=== PATIENT | female | born 1955 | race Caucasian/White ===

== ENCOUNTER → 2016-08-21 | Outpatient (CLI) | payer BC ==
[~2016-08-21] MED LIST: ASPI81TA28 PO; BIOT5TAB PO; CHOL20009 PO; FOLI1TAB7 PO; MULTTAB PO; WARF5TAB90 PO
[2016-08-21 11:20] LABS: BASO % 0.7 %; BASO ABS # 0.02 K/uL (0-0.2); COMPLETE YES; EOS % 2.3 %; HEMATOCRIT 43.5 % (37-47); LYMPH % 39.3 %; LYMPH ABS # 1.17 K/uL (1.2-3.4); MEAN CELL VOLUME 95.6 fL (80-100); MEAN CORPUSCULAR HEMOGLOBIN 32.5 pg (25-34); MEAN PLATELET VOLUME 11.3 fL (7.4-10.4); MONO % 7.7 %; PLATELET COUNT 214 K/uL (130-400); RED BLOOD COUNT 4.55 M/uL (4.2-5.4); WHITE BLOOD COUNT 2.98 K/uL (4.8-10.8)
[2016-08-21 11:42] LABS: ALT/SGPT 25 U/L (12-78); BLOOD UREA NITROGEN 17 mg/dl (7-18); BUN/CREATININE RATIO 18.4 (10-20); CALCIUM 9.1 mg/dl (8.5-10.1); CARBON DIOXIDE 26 mmol/L (21-32); CHLORIDE 105 mmol/L (98-107); CHOLESTEROL 163 mg/dl (0-200); CREATININE 0.93 mg/dl (0.60-1.20); GLUCOSE 92 mg/dl (70-99); POTASSIUM 4.6 mmol/L (3.5-5.1); SODIUM 140 mmol/L (136-145); TRIGLYCERIDES 58 mg/dl (0-150); VERY LOW DENSITY LIPOPROT CALC 12 mg/dl
[2016-08-21 11:53] LABS: ALB/GLOB RATIO 1.1 (0.9-2); ALKALINE PHOSPHATASE 61 U/L (45-117); AST/SGOT 19 U/L (15-37); CHOLESTEROL/HDL RATIO 2.6; HDL CHOLESTEROL 62 mg/dl; LDL CHOLESTEROL CALCULATED 89 mg/dl
== END | disposition home or self-care (01) ==
LOC: C.LAB1850 09:18
PROVIDERS: ATTEND Internal Medicine
DX: Z51.81 Encounter for therapeutic drug level monitoring (principal); Z79.899 Other long term (current) drug therapy; I10 Essential (primary) hypertension; R68.89 Other general symptoms and signs; E72.11 Homocystinuria; Z13.220 Encounter for screening for lipoid disorders

== ENCOUNTER → 2016-09-04 | Outpatient (CLI) | payer BC | END | disposition home or self-care (01) | LOC: C.PAPS 13:51 | PROVIDERS: ATTEND Obstetrics & Gynecology | DX: Z01.419 Encounter for gynecological examination (general) (routine) without abnormal findings (principal) ==

== ENCOUNTER → 2017-01-02 | Outpatient (CLI) | payer BC ==
[2017-01-02 12:33] LABS: BASO ABS # 0.04 K/uL (0-0.2); COMPLETE YES; HEMATOCRIT 43.1 % (37-47); LYMPH % 33.3 %; LYMPH ABS # 1.35 K/uL (1.2-3.4); MEAN CELL VOLUME 98.6 fL (80-100); MEAN CORPUSCULAR HEMOGLOBIN 31.6 pg (25-34); MEAN PLATELET VOLUME 10.6 fL (7.4-10.4); MONO % 7.7 %; PLATELET COUNT 274 K/uL (130-400); RED BLOOD COUNT 4.37 M/uL (4.2-5.4); WHITE BLOOD COUNT 4.05 K/uL (4.8-10.8)
== END | disposition home or self-care (01) ==
LOC: C.LAB1850 10:40
PROVIDERS: ATTEND Internal Medicine
DX: D72.819 Decreased white blood cell count, unspecified (principal)

== ENCOUNTER → 2017-04-18 | Outpatient (CLI) | payer BC ==
--- NOTE | 2017-04-18 13:16 | MAMMOGRAPHY REPORT ---
BILATERAL DIGITAL SCREENING MAMMOGRAM TOMOSYNTHESIS WITH CAD: 04/18/2017 CLINICAL HISTORY: Routine screening. Patient has no complaints. TECHNIQUE: Breast tomosynthesis in addition to standard 2D mammography was performed. Current study was also evaluated with a Computer Aided Detection (CAD) system. COMPARISON: Comparison is made to exams dated: 04/17/2016 mammogram, 04/14/2015 mammogram, 04/13/2014 m ammogram, 04/11/2013 mammogram, 01/29/2012 mammogram, and 01/16/2012 mammogram - [facility] nter. BREAST COMPOSITION: There are scattered areas of fibroglandular density in both breasts. FINDINGS: The parenchymal pattern is unchanged. No developing mass, architectural distortion or clus ter of suspicious microcalcifications is seen in either breast. IMPRESSION: ACR BI-RADS CATEGORY 2: BENIGN There is no mammographic evidence of malignancy. A 1 year screening mammogram is recommended. The pa tient will receive written notification of the results. Approximately 10% of breast cancers are not detected with mammography. A negative mammographic report should not delay biopsy if a clinically suggestive mass is present. Rolanda Brennan M.D. ay/:04/18/2017 12:58:58 [employer]: Lima ROWE(Joceline)(Kyle)(BD), [facility] letter sent: Normal 1/2 BI-RADS Code: ACR BI-RADS Category 2: Benign
== END | disposition home or self-care (01) ==
LOC: C.MAMM 09:20
PROVIDERS: ATTEND Obstetrics & Gynecology
DX: Z12.31 Encounter for screening mammogram for malignant neoplasm of breast (principal)

== ENCOUNTER → 2017-09-12 | Outpatient (CLI) | payer BC ==
[~2017-09-12] MED LIST changes: -FOLI1TAB7 PO; +FOLI1TAB8 PO
[2017-09-12 13:08] LABS: BASO % 0.5 %; BASO ABS # 0.02 K/uL (0-0.2); EOS % 3.3 %; EOS ABS # 0.13 K/uL (0-0.5); HEMATOCRIT 43.8 % (37-47); HEMOGLOBIN 15.1 g/dL (12.0-16.0); IG# 0.01 K/uL (0.00-0.02); LYMPH % 34.4 %; LYMPH ABS # 1.37 K/uL (1.2-3.4); MEAN CELL VOLUME 96.3 fL (80-100); MEAN CORPUSCULAR HEMOGLOBIN 33.2 pg (25-34); MEAN CORPUSCULAR HGB CONC 34.5 g/dl (32-36); MEAN PLATELET VOLUME 10.8 fL (7.4-10.4); MONO ABS # 0.32 K/uL (0.11-0.59); NEUT % 53.5 %; NEUT ABS # 2.13 K/uL (1.4-6.5); PLATELET COUNT 246 K/uL (130-400); RED CELL DISTRIBUTION WIDTH CV 12.9 % (11.5-14.5); RED CELL DISTRIBUTION WIDTH SD 44.8 fL (36.4-46.3); WHITE BLOOD COUNT 3.98 K/uL (4.8-10.8)
[2017-09-12 14:15] LABS: ALBUMIN 3.8 gm/dl (3.4-5.0); ALT/SGPT 39 U/L (12-78); BLOOD UREA NITROGEN 16 mg/dl (7-18); CALCIUM 9.1 mg/dl (8.5-10.1); CARBON DIOXIDE 30 mmol/L (21-32); CREATININE 0.94 mg/dl (0.60-1.20); GLUCOSE 94 mg/dl (70-99); POTASSIUM 4.3 mmol/L (3.5-5.1); SODIUM 139 mmol/L (136-145)
[2017-09-12 14:17] LABS: ALKALINE PHOSPHATASE 64 U/L (45-117); AST/SGOT 29 U/L (15-37); TOTAL PROTEIN 7.5 gm/dl (6.4-8.2)
== END | disposition home or self-care (01) ==
LOC: C.LAB1850 12:09
PROVIDERS: ATTEND Internal Medicine
DX: Z86.2 Personal history of diseases of the blood and blood-forming organs and certain disorders involving the immune mechanism (principal); I10 Essential (primary) hypertension

== ENCOUNTER 2021-07-05 16:56 | Observation (INO) ==
--- NOTE | 2021-07-05 17:49 | XRay Report ---
XR chest 1V portable CLINICAL HISTORY: Dyspnea. COMPARISON STUDY: Chest radiograph May 14, 2017. FINDINGS: There are median sternotomy wires. Prosthetic cardiac valve is present. No pneumothorax or pleural effusion is noted. There is no evidence for pulmonary edema. Multiple bilateral airspace opac ities are present. IMPRESSION: Multifocal bilateral airspace opacities suggestive of an infectious process. Radiographi c follow-up to ensure resolution is recommended. ACT 112: Negative or not required by law. Electronically signed by: Mahad Ocampo M.D. 07/05/2021 5:48 PM
[2021-07-05 17:53] LABS: Basophils # (auto) 0.02 K/uL (0-0.2); Basophils % (auto) 0.4 %; Eosinophils % (auto) 4.4 %; Hematocrit (blood only) 39.7 % (37-47); Hemoglobin 13.6 g/dL (12.0-16.0); Immature Granulocytes # (auto) 0.02 K/uL (0.00-0.02); Immature Granulocytes % (auto) 0.4 %; Lymphocytes # (auto) 1.46 K/uL (1.2-3.4); Lymphocytes % (auto) 32.3 %; Mean Corpuscular Hemoglobin 33.1 pg (25-34); Mean Corpuscular Hgb Conc 34.3 g/dL (32-36); Mean Corpuscular Volume 96.6 fL (80-100); Mean Platelet Volume 9.2 fL (7.4-10.4); Monocytes # (auto) 0.39 K/uL (0.11-0.59); Monocytes % (auto) 8.6 %; Neutrophils # (auto) 2.43 K/uL (1.4-6.5); Neutrophils % (auto) 53.9 %; Platelet Count 367 K/uL (130-400); RDW Coefficient of Variation 12.7 % (11.5-14.5); RDW Standard Deviation 44.5 fL (36.4-46.3); Red Blood Count 4.11 M/uL (4.2-5.4); White Blood Count 4.52 K/uL (4.8-10.8)
[2021-07-05 18:11] LABS: Alanine Aminotransferase 31 (12-78); Albumin Level 3.1 gm/dl (3.4-5.0); Aspartate Aminotransferase 23 U/L (15-37); Blood Urea Nitrogen 10 mg/dl (7-18); Calcium 8.9 mg/dl (8.5-10.1); Carbon Dioxide 28 mmol/L (21-32); Chloride 103 mmol/L (98-107); Creatinine Clr Calc Pharmacy 64.2 ml/min; Est GFR (Non-African American) 72.5 ml/min; Glucose 115 mg/dl (70-99); Potassium 3.7 mmol/L (3.5-5.1); Sodium 135 mmol/L (136-145)
[2021-07-05 18:22] LABS: Albumin Globulin Ratio 0.7 (0.9-2); Alkaline Phosphatase 62 U/L (45-117); Bilirubin,Total 0.3 mg/dl (0.2-1); Globulin 4.6 gm/dl (2.5-4.0); Total Protein 7.7 gm/dl (6.4-8.2)
--- NOTE | 2021-07-05 20:27 | Emergency Department Note ---
History of Present Illness General Chief complaint: Shortness of Breath/Dyspnea Stated complaint: COVID+, PNEUMONIA, SOB, COUGH Time Seen by Provider: 07/05/21 20:10 Source: patient History of Present Illness Provider complaint: Chest pain Onset (ago): day(s) Location: chest Radiation: non-radiation Pain Consistency: + constant Quality: + other (Heaviness) Relieved By: + none Associated symptoms: + chest pain, + cough, + fever/chills, + headaches, + malaise and + shortness of breath; no nausea/vomiting This is a 66-year-old female who presents with chest heaviness starting last night and continuing into today. She states it is substernal without radiation. It is associated with some shortness of breath. She states that she started having Covid symptoms on the first of this month. She developed a headache and then the next day developed sore throat, myalgias and cough. At that time she had chest pain which she described as broken glass on her chest. That eventually went away and the heaviness started last night. She denies any leg swelling or pain. She is on Coumadin for an artificial heart valve. She stated her last level was about 3.5. She has had a fever up to 100.5. She has had no loss of taste or smell or diarrhea. She denies abdominal pain, urinary symptoms or vomiting. She does state that she has had both vaccinations for COVID-19 but was scheduled to have her booster after she developed symptoms. She went to her doctors and had a rapid Covid test which was positive on the fourth. She was seen recently by her doctor and had an x-ray which showed bilateral pneumonia. She was placed on Zithromax, vitamin C and zinc. She has had no improvement of her symptoms. Home Medications Medication Instructions Recorded Confirmed Type cholecalciferol (vitamin D3) 50 2,000 units PO DAILY tab 04/01/19 07/05/21 History mcg (2,000 unit) tablet cyanocobalamin (vitamin B-12) 1,000 mcg PO DAILY tab 04/01/19 07/05/21 History 1,000 mcg tablet,extended release latanoprost 0.005 % eye drops 1 drops OP DAILY ml 04/01/19 07/05/21 History folic acid 1 mg tablet 1 mg PO DAILY #90 tab 10/07/20 07/05/21 Rx warfarin 5 mg tablet 5 mg PO DAILY #90 tab 10/08/20 07/05/21 Rx alendronate 70 mg tablet 70 mg PO WK tab 03/22/21 07/05/21 History ascorbic acid (vitamin C) 500 mg 0 mg PO DAILY 07/05/21 07/05/21 History tablet (Vitamin C) aspirin 81 mg capsule 81 mg PO DAILY 07/05/21 07/05/21 History calcium carbonate 500 mg calcium 0 mg PO DAILY 07/05/21 07/05/21 History (1,250 mg) tablet (Calcium 500) zinc acetate 25 mg (zinc) capsule 0 mg PO DAILY 07/05/21 07/05/21 History Allergies Allergy/AdvReac Type Severity Reaction Status Date / Time No Known Allergies Allergy Unverified 06/22/21 08:32 Past Med/Surg History Medical History Acute DVT (deep venous thrombosis) Caregiver stress PMB (postmenopausal bleeding) Pulmonary embolism Rheumatic disease Rheumatic endocardium disease Surgical History H/O valvuloplasty S/P tonsillectomy and adenoidectomy Family History Mother Neoplasm of lymph node Father Pacemaker Denies family history of Ovarian cancer Prostate cancer Myocardial infarction Breast cancer Colorectal cancer Social History Smoking Status: Never smoker Second Hand Exposure: No; Hx Alcohol Use: No Hx Substance Use: No Preferred Language: Wolof Visual Impairment: No Limitations Hearing Ability: Normal Recovery Analyst Required: No marital status: Current Living Situation: Spouse current occupational status: retired Feels Safe at Home: Yes Childhood Exposure to Second-Hand Smoke: No caffeine: Yes Dental Care, Regularly: Yes Physical Activity Frequency: 3-4 Times per Week Seatbelt Use: always Sunscreen Use: Yes Review of Systems See HPI for pertinent positives & negatives. and A total of 10 systems reviewed and were otherwise negative Physical Exam Vital Signs Vital Signs - 24 hr 07/05/21 17:00 07/05/21 20:34 07/05/21 20:36 Temperature 36.8 C Temperature Source Skin Pulse Rate 100 H Pulse Rate [Bilateral Apical] 79 Respiratory Rate 18 20 Respiratory Effort / Characteristics Non-Labored Respiratory Depth Normal Blood Pressure 165/99 H Blood Pressure [Right Arm] 157/91 H Blood Pressure Mean 121 Blood Pressure Mean [Right Arm] 113 Pulse Oximetry 97 97 97 Oxygen Delivery Method Room Air Room Air Room Air Sepsis Recent Fever Within 48 Hours No Sepsis New/Unexplained Change in Mental Status No Sepsis Action Taken by Nursing No Action Required 07/05/21 21:15 07/05/21 22:06 Temperature Temperature Source Pulse Rate Pulse Rate [Bilateral Apical] 88 78 Respiratory Rate 20 20 Respiratory Effort / Characteristics Respiratory Depth Blood Pressure Blood Pressure [Right Arm] 169/113 H 148/82 H Blood Pressure Mean Blood Pressure Mean [Right Arm] 131 104 Pulse Oximetry 98 97 Oxygen Delivery Method Room Air Room Air Sepsis Recent Fever Within 48 Hours Sepsis New/Unexplained Change in Mental Status Sepsis Action Taken by Nursing Constitutional: Vital signs reviewed. Eyes: Pupils are equal round reactive to light. Conjunctiva are noninjected. ENT: Pharynx is clear without erythema or exudate. Mucous membranes are moist. Neck supple without meningeal signs. Respiratory: Clear to auscultation bilaterally. Breath sounds are equal bilaterally. Cardiovascular: Regular rate and rhythm. No rubs or gallops. GI: Soft, nondistended and nontender. Bowel sounds are present. Musculoskeletal: No peripheral edema. No lower extremity tenderness. Integumentary: No cyanosis. or jaundice. Neurological: The patient is awake and alert. No focal deficits. Psychiatric: Normal affect. Not anxious appearing. Course Administered Medications Discontinued Medications Aspirin (Aspirin 81 Mg Chew) 324 mg PO NOW STA Stop: 07/05/21 21:46 Last Admin: 07/05/21 22:06 Dose: Not Given Documented by: [id number] Aspirin (Aspirin Chew 324 Mg) Confirm Administered Dose 324 mg .ROUTE .STK-MED ONE Stop: 07/05/21 22:04 Last Admin: 07/05/21 22:06 Dose: 324 mg Documented by: [id number] Nitroglycerin (Nitroglycerin 2% Ointment 30gm Tube) 0.5 inch EXT NOW ONE Stop: 07/05/21 20:30 Last Admin: 07/05/21 20:41 Dose: 0.5 inch Documented by: [id number] Medical Decision Making Differential Diagnosis Multifocal pneumonia, COVID-19, pleurisy, pericarditis, myocarditis, [place] Medical Records Attestation: I reviewed the patient's medical records. I did perform a limited focused review of portions of the patient's old chart on the electronic medical record. The patient was seen by primary care today for health maintenance. It is noted that she is on lifelong Coumadin for a heart valve. Home Medications Current Medication List: was personally reviewed by me Laboratory Data Attestation: I reviewed the patient's lab results. Result diagrams: 07/05/21 17:45 07/05/21 17:45 Lab Results 07/05/21 07/05/21 07/05/21 Range/Units 17:45 17:45 17:45 WBC 4.52 L (4.8-10.8) K/uL RBC 4.11 L (4.2-5.4) M/uL Hgb 13.6 (12.0-16.0) g/dL Hct 39.7 (37-47) % MCV 96.6 (80-100) fL MCH 33.1 (25-34) pg MCHC 34.3 (32-36) g/dL RDW Std Deviation 44.5 (36.4-46.3) fL RDW Coeff of [place] 12.7 (11.5-14.5) % Plt Count 367 (130-400) K/uL MPV 9.2 (7.4-10.4) fL Immature Gran % (Auto) 0.4 % Neut % (Auto) 53.9 % Lymph % (Auto) 32.3 % [place] % (Auto) 8.6 % Eos % (Auto) 4.4 % Baso % (Auto) 0.4 % Neut # (Auto) 2.43 (1.4-6.5) K/uL Lymph # (Auto) 1.46 (1.2-3.4) K/uL [place] # (Auto) 0.39 (0.11-0.59) K/uL Eos # (Auto) 0.20 (0-0.5) K/uL Baso # (Auto) 0.02 (0-0.2) K/uL Immature Gran # (Auto) 0.02 (0.00-0.02) K/uL PT 19.5 H (9.0-12.0) Seconds INR 2.0 H (0.9-1.1) Sodium 135 L (136-145) mmol/L Potassium 3.7 (3.5-5.1) mmol/L Chloride 103 (98-107) mmol/L Carbon Dioxide 28 (21-32) mmol/L Anion Gap 4.0 (3-11) BUN 10 (7-18) mg/dl Creatinine 0.83 (0.6-1.2) mg/dl Est Cr Clr Drug Dosing 64.2 ml/min Est GFR ( Amer) 84.0 ml/min Est GFR (Non-Af Amer) 72.5 ml/min BUN/Creatinine Ratio 12.0 (10-20) Glucose 115 H (70-99) mg/dl Calcium 8.9 (8.5-10.1) mg/dl Total Bilirubin 0.3 (0.2-1) mg/dl AST 23 (15-37) U/L ALT 31 (12-78) Alkaline Phosphatase 62 (45-117) U/L Troponin I < 0.015 (0-0.045) ng/ml Total Protein 7.7 (6.4-8.2) gm/dl Albumin 3.1 L (3.4-5.0) gm/dl Globulin 4.6 H (2.5-4.0) gm/dl Albumin/Globulin Ratio 0.7 L (0.9-2) SARS-CoV-2, RNA, NAAT (NEGATIVE) 07/05/21 07/05/21 07/05/21 Range/Units 17:45 20:34 21:30 WBC (4.8-10.8) K/uL RBC (4.2-5.4) M/uL Hgb (12.0-16.0) g/dL Hct (37-47) % MCV (80-100) fL MCH (25-34) pg MCHC (32-36) g/dL RDW Std Deviation (36.4-46.3) fL RDW Coeff of [place]atha (11.5-14.5) % Plt Count (130-400) K/uL MPV (7.4-10.4) fL Immature Gran % (Auto) % Neut % (Auto) % Lymph % (Auto) % [place] % (Auto) % Eos % (Auto) % Baso % (Auto) % Neut # (Auto) (1.4-6.5) K/uL Lymph # (Auto) (1.2-3.4) K/uL [place] # (Auto) (0.11-0.59) K/uL Eos # (Auto) (0-0.5) K/uL Baso # (Auto) (0-0.2) K/uL Immature Gran # (Auto) (0.00-0.02) K/uL PT (9.0-12.0) Seconds INR (0.9-1.1) Sodium (136-145) mmol/L Potassium (3.5-5.1) mmol/L Chloride (98-107) mmol/L Carbon Dioxide (21-32) mmol/L Anion Gap (3-11) BUN (7-18) mg/dl Creatinine (0.6-1.2) mg/dl Est Cr Clr Drug Dosing ml/min Est GFR ( Amer) ml/min Est GFR (Non-Af Amer) ml/min BUN/Creatinine Ratio (10-20) Glucose (70-99) mg/dl Calcium (8.5-10.1) mg/dl Total Bilirubin (0.2-1) mg/dl AST (15-37) U/L ALT (12-78) Alkaline Phosphatase (45-117) U/L Troponin I Cancelled < 0.015 (0-0.045) ng/ml Total Protein (6.4-8.2) gm/dl Albumin (3.4-5.0) gm/dl Globulin (2.5-4.0) gm/dl Albumin/Globulin Ratio (0.9-2) SARS-CoV-2, RNA, NAAT NEGATIVE (NEGATIVE) Imaging Data Radiologist's Impression: Chest X-Ray 07/05/21 17:04 XR chest 1V portable CLINICAL HISTORY: Dyspnea. COMPARISON STUDY: Chest radiograph May 14, 2017. FINDINGS: There are median sternotomy wires. Prosthetic cardiac valve is present. No pneumothorax or pleural effusion is noted. There is no evidence for pulmonary edema. Multiple bilateral airspace opacities are present. IMPRESSION: Multifocal bilateral airspace opacities suggestive of an infectious process. Radiographic follow-up to ensure resolution is recommended. ACT 112: Negative or not required by law. Electronically signed by: Mahad Ocampo M.D. 07/05/2021 5:48 PM ECG Data Attestation: I personally reviewed and interpreted this ECG as follows: Indication: + chest pain Rate (beats per minute): 99 Rhythm: + normal sinus ECG Intervals/blocks: + Right Bundle branch block ECG [place]: + Normal ECG ST segments: no ST elevation ECG Findings: no PVCs Comparison ECG Date: from (November 05, 2012) Change: the following changes noted (Right bundle branch block is new) MDM Narrative I did evaluate the patient as noted above. The patient is presenting with chest heaviness since yesterday. She did state that she had a cardiac catheterization in 2012 which did not show any significant disease. She has had Covid symptoms since June 15 and has had bilateral pneumonia on her x-ray recently. She is concerned because she developed chest heaviness last night. IV access was established. She was given nitroglycerin paste. I did place an order for continuous cardiac monitoring. The monitor showed normal sinus rhythm at a rate of 98 bpm. I did order and personally review the patient's 12-lead EKG as described above. She has a right bundle branch block which was not present in 2013. A more recent EKG is not available. I did order and personally reviewed the images of the patient's chest x-ray as described above. She does have what appears to be a multifocal pneumonia consistent with COVID-19 infection. I did order and review the patient's blood work as noted in the electronic medical record. Electrolytes are unremarkable other than a sodium of 135. LFTs are unremarkable. CBC shows a mild leukopenia with a white count of 4.5. She was noted by her doctor to have a chronic leukopenia for years. She is not anemic o r thrombocytopenic. She has no left shift. INR is 2. Initial troponin is negative. Second troponin drawn almost 3 hours later is also negative. I did reassess the patient. She states her chest pain is better after being given the nitroglycerin. She does state that it is radiating slightly into her neck. I did discuss the test results with her. She will be hospitalized for further care and evaluation and repeat cardiac body markers. The case was discussed with the family caseworker and the hospitalist was informed. She was given aspirin 325 mg p.o. Impression & Plan Acute chest pain, Subtherapeutic international normalized ratio (INR), Pneumonia due to 2019 novel coronavirus, Right bundle branch block Discharge Plan Visit Data Chief Complaint: Shortness of Breath/Dyspnea Stated Complaint: COVID+, PNEUMONIA, SOB, COUGH ED Provider: Paulino Ashford Discharge Problem: Acute chest pain, Subtherapeutic international normalized ratio (INR), Pneum onia due to 2019 novel coronavirus, Right bundle branch block Patient Disposition: Being Evaluated by Hospitalist Forms Stand Alone Forms: My [facility] Prescriptions Prescriptions: No Action folic acid 1 mg tablet 1 mg PO DAILY Qty: 90 RF: 3 warfarin 5 mg tablet 5 mg PO DAILY Qty: 90 RF: 3 cholecalciferol (vitamin D3) 2,000 unit tablet 2,000 units PO DAILY RF: 0 latanoprost 0.005 % drops 1 drops OP DAILY RF: 0 cyanocobalamin (vitamin B-12) 1,000 mcg tablet extended release 1,000 mcg PO DAILY RF: 0 alendronate 70 mg tablet 70 mg PO WK RF: 0 zinc acetate 25 mg (zinc) Capsule 0 mg PO DAILY RF: 0 calcium carbonate [Calcium 500] 500 mg calcium (1,250 mg) Tablet 0 mg PO DAILY RF: 0 ascorbic acid (vitamin C) [Vitamin C] 500 mg Tablet 0 mg PO DAILY RF: 0 aspirin 81 mg Capsule 81 mg PO DAILY RF: 0 Referrals Referrals: Rakesh Chow MD [Primary Care Provider] -
[2021-07-05] MEDS ORDERED: NITROGLYCERIN 2% OINTMENT 30GM TUBE EXT ONE (20:29)
[2021-07-05 20:30] LABS: Prothrombin Time 19.5 Seconds (9.0-12.0)
[2021-07-05 20:45] LABS: Troponin I < 0.015 ng/ml (0-0.045)
[2021-07-05] MEDS ORDERED: ASPIRIN 81 MG CHEW PO STA (21:45)
[2021-07-05] MEDS ORDERED: ASPIRIN CHEW 324 MG ONE (22:03)
--- NOTE | 2021-07-05 23:12 | History & Physical Report ---
Date of Service July 05, 2021 Assessment & Plan (1) Fever: Plan: Fever of unknown origin- Symptoms been present since June 15 Main differential is that of viral versus bacterial pneumonia versus endocarditis We will place empirically on ceftriaxone 2 g IV daily and azithromycin 500 mg IV daily until work-up complete (2) Pneumonia due to 2019 novel coronavirus: Plan: Patient was COVID-19 positive on 06/18, but was negative testing in the ED this evening CT angiography PE protocol consistent with multifocal viral pneumonia She was previously treated in outpatient setting with dexamethasone and albuterol HFA, and then later was placed on a Z-John. She did not qualify at a time basis for treatment with remdesivir or monoclonal antibody. We will do a trial of dexamethasone IV and follow response (3) Rheumatic heart disease: Plan: Rheumatic heart disease/mitral stenosis/mitral regurgitation/aortic regurgitation/aortic stenosis/status post AVR- Patient has been treated for COVID-19 infection over the past few weeks, has had an intermittent fever during that interval, and would have to be concerned regarding possibility of underlying endocarditis The patient will be admitted to telemetry for serial cardiac enzymes, serial EKG's, cardiac rhythm monitoring and a 2-D echocardiogram with Dopplers. Consult her registered occupational therapist Dr. Nghia Crenshaw (4) terminal carman (current) use of anticoagulants: Plan: Takes warfarin 5 mg daily for history of AVR and pulmonary embolism. Mildly subtherapeutic with INR of 2 CT angio PE protocol was negative for PE but did show multifocal viral pneumonia (5) H/O heart valve replacement with mechanical valve: Plan: See above (6) Mitral stenosis: Plan: See above (7) Mitral regurgitation: Plan: See above (8) Homocysteinemia: Plan: Continue folic acid (9) Pulmonary embolism: Plan: Continue warfarin Repeat INR in a.m., and if does not get a bump from IV antibiotics given, will i ncrease dosing of warfarin and/or cross cover with Lovenox subcu (10) Aortic regurgitation: Plan: See above (11) Aortic stenosis: Plan: See above History of Present Illness Chief Complaint: Patient presents to the emergency department complaining of chest discomfort, shortness of breath and dyspnea on exertion. The symptoms initially began on June 15, and she was diagnosed with COVID-19 pneumonia on June 18. The next day she then developed a headache, and the day following that developed sore throat, myalgias and a cough. She reports that the chest heaviness began last evening. She reports that she has had a temperature intermittently since this time, up to maximum of 100.5. She was seen in the outpatient setting by her PCP, and was placed on Zithromax, without significant improvement in symptoms. Significant laboratories: COVID-19 positive on 06/18, but negative in the ED this evening Chest x-ray with mild multifocal pneumonia Primary Care Provider: Rakesh Chow MD Allergies Allergy/AdvReac Type Severity Reaction Status Date / Time No Known Allergies Allergy Unverified 06/22/21 08:32 Home Medications Medication Instructions Recorded Confirmed Type cholecalciferol (vitamin D3) 50 2,000 units PO DAILY tab 04/01/19 07/05/21 History mcg (2,000 unit) tablet cyanocobalamin (vitamin B-12) 1,000 mcg PO DAILY tab 04/01/19 07/05/21 History 1,000 mcg tablet,extended release latanoprost 0.005 % eye drops 1 drops OP DAILY ml 04/01/19 07/05/21 History folic acid 1 mg tablet 1 mg PO DAILY #90 tab 10/07/20 07/05/21 Rx warfarin 5 mg tablet 5 mg PO DAILY #90 tab 10/08/20 07/05/21 Rx alendronate 70 mg tablet 70 mg PO WK tab 03/22/21 07/05/21 History ascorbic acid (vitamin C) 500 mg 0 mg PO DAILY 07/05/21 07/05/21 History tablet (Vitamin C) aspirin 81 mg capsule 81 mg PO DAILY 07/05/21 07/05/21 History calcium carbonate 500 mg calcium 0 mg PO DAILY 07/05/21 07/05/21 History (1,250 mg) tablet (Calcium 500) zinc acetate 25 mg (zinc) capsule 0 mg PO DAILY 07/05/21 07/05/21 History Past Med/Surg History Medical History (Updated 07/06/21 @ 02:33 by Toi Marcus MD) Acute DVT (deep venous thrombosis) Caregiver stress PMB (postmenopausal bleeding) Pulmonary embolism Rheumatic disease Rheumatic endocardium disease Surgical History H/O valvuloplasty S/P tonsillectomy and adenoidectomy Family History Mother Neoplasm of lymph node Father Pacemaker Denies family history of Ovarian cancer Prostate cancer Myocardial infarction Breast cancer Colorectal cancer Social History Smoking Status: Never smoker Second Hand Exposure: No; Hx Alcohol Use: No Hx Substance Use: No Preferred Language: Romanian Visual Impairment: No Limitations Hearing Ability: Normal Health Coach Required: No marital status: Current Living Situation: Spouse current occupational status: retired Feels Safe at Home: Yes Childhood Exposure to Second-Hand Smoke: No caffeine: Yes Dental Care, Regularly: Yes Physical Activity Frequency: 3-4 Times per Week Seatbelt Use: always Sunscreen Use: Yes Review of Systems Review of Systems: The patient denies palpitations, lower extremity swelling, chills, sweats, nausea, vomiting, diarrhea , constipation, abdominal pain, pelvic pain, blood in urine or stool, dysuria, urinary frequency or urgency, lightheadedness, dizziness, memory loss, loss of consciousness, rash, abnormal bruising or bleeding, focal weakness, numbness or tingling in arms or legs, back or neck pain, or night sweats. The review of systems is otherwise negative other than for that already noted above, and at least 10 systems have been reviewed. Physical Exam Physical Exam: The patient is awake, alert and oriented 3, well developed and well nourished, normocephalic and atraumatic, lying in bed and in no acute distress. HEENT--PERRL, EOMI, mucous membranes and oropharynx normal Neck--supple. No JVD. No bruits. Thyroid normal, trachea midline, no adenopathy. Heart--normal S1 and S2. No murmurs, rubs or gallops. Lungs--clear bilaterally. No respiratory distress, no accessory muscle use. Abdomen--normal bowel sounds and soft. Nontender. Nondistended Extremities--no cyanosis or clubbing. No edema. Dermatologic--normal skin turgor, normal color, no abnormal lymph nodes, no rash. Neurologic--cranial nerves II through XII grossly intact. Rheumatologic--normal range of motion. Psychiatric--normal affect. Results & Data Results & Data ([facility]) Vital Signs (Past 12 Hours) Vital Signs Temp Pulse Pulse Resp BP BP Pulse Ox 07/05/21 23:02 90 20 144/78 H 96 07/05/21 22:06 78 20 148/82 H 97 07/05/21 21:15 88 20 169/113 H 98 07/05/21 20:36 97 07/05/21 20:34 79 20 157/91 H 97 07/05/21 17:00 36.8 C 100 H 18 165/99 H 97 Laboratory Results Laboratory Results WBC 4.52 K/uL (4.8-10.8) L 07/05/21 17:45 RBC 4.11 M/uL (4.2-5.4) L 07/05/21 17:45 Hgb 13.6 g/dL (12.0-16.0) 07/05/21 17:45 Hct 39.7 % (37-47) 07/05/21 17:45 MCV 96.6 fL (80-100) 07/05/21 17:45 MCH 33.1 pg (25-34) 07/05/21 17:45 MCHC 34.3 g/dL (32-36) 07/05/21 17:45 RDW Std Deviation 44.5 fL (36.4-46.3) 07/05/21 17:45 RDW Coeff of Leatha 12.7 % (11.5-14.5) 07/05/21 17:45 Plt Count 367 K/uL (130-400) 07/05/21 17:45 MPV 9.2 fL (7.4-10.4) 07/05/21 17:45 Immature Gran % (Auto) 0.4 % 07/05/21 17:45 Neut % (Auto) 53.9 % 07/05/21 17:45 Lymph % (Auto) 32.3 % 07/05/21 17:45 [place] % (Auto) 8.6 % 07/05/21 17:45 Eos % (Auto) 4.4 % 07/05/21 17:45 Baso % (Auto) 0.4 % 07/05/21 17:45 Neut # (Auto) 2.43 K/uL (1.4-6.5) 07/05/21 17:45 Lymph # (Auto) 1.46 K/uL (1.2-3.4) 07/05/21 17:45 [place] # (Auto) 0.39 K/uL (0.11-0.59) 07/05/21 17:45 Eos # (Auto) 0.20 K/uL (0-0.5) 07/05/21 17:45 Baso # (Auto) 0.02 K/uL (0-0.2) 07/05/21 17:45 Immature Gran # (Auto) 0.02 K/uL (0.00-0.02) 07/05/21 17:45 PT 19.5 Seconds (9.0-12.0) H 07/05/21 17:45 INR 2.0 (0.9-1.1) H 07/05/21 17:45 Sodium 135 mmol/L (136-145) L 07/05/21 17:45 Potassium 3.7 mmol/L (3.5-5.1) 07/05/21 17:45 Chloride 103 mmol/L (98-107) 07/05/21 17:45 Carbon Dioxide 28 mmol/L (21-32) 07/05/21 17:45 Anion Gap 4.0 (3-11) 07/05/21 17:45 BUN 10 mg/dl (7-18) 07/05/21 17:45 Creatinine 0.83 mg/dl (0.6-1.2) 07/05/21 17:45 Est Cr Clr Drug Dosing 64.2 ml/min 07/05/21 17:45 Est GFR ( Amer) 84.0 ml/min 07/05/21 17:45 Est GFR (Non-Af Amer) 72.5 ml/min 07/05/21 17:45 BUN/Creatinine Ratio 12.0 (10-20) 07/05/21 17:45 Glucose 115 mg/dl (70-99) H 07/05/21 17:45 Calcium 8.9 mg/dl (8.5-10.1) 07/05/21 17:45 Total Bilirubin 0.3 mg/dl (0.2-1) 07/05/21 17:45 AST 23 U/L (15-37) 07/05/21 17:45 ALT 31 (12-78) 07/05/21 17:45 Alkaline Phosphatase 62 U/L (45-117) 07/05/21 17:45 Troponin I < 0.015 ng/ml (0-0.045) 07/05/21 20:34 Total Protein 7.7 gm/dl (6.4-8.2) 07/05/21 17:45 Albumin 3.1 gm/dl (3.4-5.0) L 07/05/21 17:45 Globulin 4.6 gm/dl (2.5-4.0) H 07/05/21 17:45 Albumin/Globulin Ratio 0.7 (0.9-2) L 07/05/21 17:45 SARS-CoV-2, RNA, NAAT NEGATIVE (NEGATIVE) 07/05/21 21:30 Impressions Chest X-Ray 07/05/21 17:04 XR chest 1V portable CLINICAL HISTORY: Dyspnea. COMPARISON STUDY: Chest radiograph May 14, 2017. FINDINGS: There are median sternotomy wires. Prosthetic cardiac valve is present. No pneumothorax or pleural effusion is noted. There is no evidence for pulmonary edema. Multiple bilateral airspace opacities are present. IMPRESSION: Multifocal bilateral airspace opacities suggestive of an infectious process. Radiographic follow-up to ensure resolution is recommended. ACT 112: Negative or not required by law. Electronically signed by: Mahad Ocampo M.D. 07/05/2021 5:48 PM Code Status & VTE Plan Code Status Full code VTE Prophylaxis Plan VTE Prophylaxis will be ordered: Yes PG Care Time/CCT Total # of Minutes Spent Total Time Spent with Patient: Total time spent is greater than 50% in coordination of care (as documented) at patient's floor/unit and/or counseling patient: Coding Level of Care Code 90169 Initial Inpt Care Lvl 3 Diagnoses Pneumonia due to 2019 novel coronavirus U07.1; J12.82 H/O heart valve replacement with mechanical valve Z95.2 Rheumatic heart disease I09.9 Mitral stenosis I05.0 Mitral regurgitation I34.0 Homocysteinemia E72.11 Pulmonary embolism I26.99 Aortic regurgitation I35.1 Aortic stenosis I35.0 terminal carman (current) use of anticoagulants Z79.01 Fever R50.9
[2021-07-05] MEDS ORDERED: OPTIRAY 320 125ml IV ONE (23:41)
[2021-07-06] MEDS ORDERED: ONDANSETRON INJ 2 MG/ML 2 ML VIAL IV PRN (00:50)
[2021-07-06] MEDS ORDERED: ACETAMINOPHEN 325 MG TAB PO PRN (00:50)
[2021-07-06] MEDS ORDERED: ALBUTEROL HFA 8 GM INHALER INH PRN (00:50)
[2021-07-06] MEDS ORDERED: NITROGLYCERIN SL 0.4 MG/TAB TAB SL PRN (00:50)
[2021-07-06] MEDS: methylPREDNISolone 20 MG in SYRINGE 0 ML IV SCH ×3 (02:04→18:42)
[2021-07-06] MEDS ORDERED: cefTRIAXone SODIUM 2,000 MG in DEXTROSE 5% 50 ML IV SCH (05:00)
[2021-07-06] MEDS ORDERED: AZITHROMYCIN 500 MG in DEXTROSE 5% 250 ML IV SCH (06:00)
--- NOTE | 2021-07-06 08:16 | CT Scan Report ---
CT angio chest PE protocol CLINICAL HISTORY: Dyspnea, Covid infection of the abdomen May. TECHNIQUE: Multidetector row helical CT of the chest was performed. Coronal and sagittal reformations were obtained. Coronal and sagittal MIPS were obtained from the axial data set and were submitted fo r review. Automated dose lowering techniques and/or adjustment according to patient size were utiliz ed for this exam. Comparison: None available at the time of this dictation. FINDINGS: Lungs and pleura: Scattered consolidative changes are seen predominantly in the periphery of the lung . Heart and pericardium: Aortic valve prosthesis is seen. Cardiomegaly is seen with biatrial enlargemen t. Vessels: No evidence of pulmonary embolism. Mediastinum and katelyn: Subcentimeter Chest wall and lower neck: Unremarkable. Abdomen: Partial visualization of hepatic cysts. Bones: Unremarkable. IMPRESSION: 1. No evidence of pulmonary embolism. 2. Scattered peripheral consolidative opacities compatible with history of Covid pneumonia. ACT 112: Negative or not required by law. Electronically signed by: Joo Rodgers M.D. 07/06/2021 8:14 AM
[2021-07-06] MEDS ORDERED: FOLIC ACID 1 MG TAB PO SCH (09:00)
[2021-07-06] MEDS ORDERED: CYANOCOBALAMIN 500 MCG TABLET (VITAMIN B-12) PO SCH (09:00)
[2021-07-06] MEDS ORDERED: ASPIRIN 81 MG ECTAB PO SCH (09:00)
[2021-07-06] MEDS ORDERED: guaiFENesin 600 MG TABCR PO SCH (09:00)
[2021-07-06] MEDS ORDERED: CALCIUM CARBONATE 1250MG TAB PO SCH (09:00)
[2021-07-06] MEDS ORDERED: CHOLECALCIFEROL 1,000 UNITS 25 MCG TAB PO SCH (09:00)
[2021-07-06] MEDS ORDERED: ASCORBIC ACID 500 MG TAB PO SCH (09:00)
[2021-07-06] MEDS ORDERED: LATANOPROST 0.005% OP SOLN 2.5 ML BTL OP SCH (09:00)
[2021-07-06 10:37] LABS: INR 1.7 (0.9-1.1); Prothrombin Time 16.5 Seconds (9.0-12.0)
[2021-07-06] MEDS ORDERED: WARFARIN SOD 3 MG TAB PO ONE (11:09)
[2021-07-06] MEDS ORDERED: CEFDINIR 300 MG CAP PO ONE (15:00)
--- NOTE | 2021-07-06 15:42 | Cardiology Consultation ---
Date of Consultation July 06, 2021 Assessment & Plan (1) Pneumonia due to 2019 novel coronavirus: 2. Rheumatic heart disease post mechanical AVR on chronic anticoagulation 3. Mild mitral stenosis/mild to moderate mitral regurgitation 4. Right bundle branch block Very low suspicion patient's chest tightness represent ACS. Negative troponin after more than 6 hours of pain. Tightness occurred in the setting of Covid pneumonia and significant emotional stress, clearing out the belongings of her [id number] who recently from COVID-19. Remained chest pain-free overnight. Do not feel additional ischemic testing necessary at this time. In regard to intermittent low-grade fevers suspect more related to recent COVID- 19 illness, pneumonia. Very low suspicion for endocarditis. No need for repeat echocardiogram unless blood cultures positive. Continue anticoagulation with warfarin. Continue aspirin. From a cardiac standpoint okay with discharge whenever other medical issues stable. Can follow-up as scheduled. History of Present Illness Attending Physician: Delio Mcgrath, DO History of Present Illness Mrs. Nugent is a very pleasant 66-year-old woman with a history of rheumatic fever as a child complicated by mitral stenosis status post percutaneous balloon valvotomy in [place] in 1988, severe aortic stenosis status post aortic valve replacement ([facility] mechanical AVR, 19 millimeter, 11/2012, [facility]), homocystinemia, heterozygous for MTHFR gene mutation. She was seen today in the ED in the setting of chest pain persistent fevers. Patient known to me from the outpatient setting. Last seen 3 months ago. At that time repeat echo showed stable valvular heart disease. Diagnosed with COVID-19 infection 06/18 in setting of upper respiratory symptoms beginning around 06/15. Since that time has had persistent dyspnea on exertion and intermittent fevers. Was seen by urgent care and started on Zithromax without improvement in symptoms. On Sunday, 2 days ago had brief episode of chest pressure at night. Then yesterday afternoon had recurrent chest pressure which persisted for more than 6 hours. Due to symptoms presented to ED. Of note symptoms began while she was moving out her fyoqzz-jz-syrl (Jenny) stuff from assisted living after Jenny 4 days ago due to COVID-19 infection. Patient very close with her [id number]-sg-wbd and feels very guilty about potentially exposing her to COVID-19. In the ED troponin negative x2. ECG showed new right bundle branch block from [address] changes. Chest x-ray and CTA showed multifocal opacities compatible with Covid pneumonia. CTA negative for PE. Normal white count, procalcitonin negative. Started on IV Abx, blood cultures drawn. Prior cardiovascular studies include: Echo 03/2021: EF 60 to 65%, normal mechanical aortic valve function (PV 3.3, MG 21). Mild AI. Mild to moderate MR, mild MS (MG 5, MVA 2.0). Grade 2 DD Exercise stress echo (05/2016): Negative for ischemia at 95 percent MPHR, [address]-depression V3, V4. Above average functional capacity 9 minutes, 10.1 Mets. EF 55-60. Normally functioning mechanical aortic valve (peak velocity 2.8). Restricted, thickened mitral mild MR mild MS (mean gradient 3, PASP 30-35, MV gradient with exercise 7.6 Allergies Allergy/AdvReac Type Severity Reaction Status Date / Time No Known Allergies Allergy Unverified 06/22/21 08:32 Home Medications Medication Instructions Recorded Confirmed Type cholecalciferol (vitamin D3) 50 2,000 units PO DAILY tab 04/01/19 07/05/21 History mcg (2,000 unit) tablet cyanocobalamin (vitamin B-12) 1,000 mcg PO DAILY tab 04/01/19 07/05/21 History 1,000 mcg tablet,extended release latanoprost 0.005 % eye drops 1 drops OP DAILY ml 04/01/19 07/05/21 History folic acid 1 mg tablet 1 mg PO DAILY #90 tab 10/07/20 07/05/21 Rx warfarin 5 mg tablet 5 mg PO DAILY #90 tab 10/08/20 07/05/21 Rx alendronate 70 mg tablet 70 mg PO WK tab 03/22/21 07/05/21 History ascorbic acid (vitamin C) 500 mg 0 mg PO DAILY 07/05/21 07/05/21 History tablet (Vitamin C) aspirin 81 mg capsule 81 mg PO DAILY 07/05/21 07/05/21 History calcium carbonate 500 mg calcium 0 mg PO DAILY 07/05/21 07/05/21 History (1,250 mg) tablet (Calcium 500) zinc acetate 25 mg (zinc) capsule 0 mg PO DAILY 07/05/21 07/05/21 History cefdinir 300 mg capsule 300 mg PO BID #14 cap 07/06/21 Rx Patient History Medical History (Updated 07/06/21 @ 02:33 by Toi Marcus MD) Acute DVT (deep venous thrombosis) Caregiver stress PMB (postmenopausal bleeding) Pulmonary embolism Rheumatic disease Rheumatic endocardium disease Surgical History H/O valvuloplasty S/P tonsillectomy and adenoidectomy Family History Mother Neoplasm of lymph node Father Pacemaker Denies family history of Ovarian cancer Prostate cancer Myocardial infarction Breast cancer Colorectal cancer Social History Smoking Status: Never smoker Second Hand Exposure: No; Hx Alcohol Use: No Hx Substance Use: No Preferred Language: Montserratian Visual Impairment: No Limitations Hearing Ability: Normal Mobility Scooter Repairer Required: No marital status: Current Living Situation: Spouse current occupational status: retired Feels Safe at Home: Yes Childhood Exposure to Second-Hand Smoke: No caffeine: Yes Dental Care, Regularly: Yes Physical Activity Frequency: 3-4 Times per Week Seatbelt Use: always Sunscreen Use: Yes Review of Systems Review of Systems: All systems reviewed & are unremarkable except as noted in HPI & below Physical Exam Physical Exam: General: Comfortable, no acute distress HEENT: Sclerae anicteric Lungs: Clear to auscultation bilaterally, no rhonchi or wheezes Cardiac: Regular, crisp mechanical closure sound, 3/6 holosystolic murmur heard best at the right upper sternal border, no diastolic murmur heard at the apex. Abdomen: Soft, nontender, nondistended, positive bowel sounds. Extremities: Warm, well perfused, no edema. 2+ radial pulses Skin: Few reticular veins, varicosities below the knee right greater than left, mild hyperpigmentation on the right edwards Neuro: Nonfocal Psych: Alert orient x3, normal affect and mood Results & Data ([facility]) Vital Signs (Past 12 Hours) Vital Signs Pulse Resp BP Pulse Ox Pulse Ox 07/06/21 12:31 83 20 143/86 H 94 07/06/21 11:11 82 21 140/78 95 07/06/21 08:36 95 07/06/21 07:14 77 15 147/80 H 95 94 07/06/21 04:21 80 18 92/68 L 98 PG Care Time/CCT Total # of Minutes Spent Total Time Spent with Patient: Total time spent is greater than 50% in coordination of care (as documented) at patient's floor/unit and/or counseling patient: Coding Level of Care Code 35581 Initial Inpt Care Lvl 3 Diagnoses Pneumonia due to 2019 novel coronavirus U07.1; J12.82
[2021-07-06] MEDS ORDERED: WARFARIN SOD 5 MG TAB PO SCH (16:00)
--- NOTE | 2021-07-06 18:44 | XCELERA ---
[id number]\[id number]
--- NOTE | 2021-07-06 19:24 | Discharge Summary ---
Date of Service July 06, 2021 Principal Diagnosis Bacterial pneumonia Discharge Exam In general she is awake and alert pleasant fatigued no distress. HEENT normocephalic atraumatic mucous membranes moist. Breathing unlabored, lungs overall clear with faint diminished base right. No accessory muscle use good effort. Skin shows no rashes no pallor or icterus. Neuro without focal deficits. Discharge Data Allergies Allergy/AdvReac Type Severity Reaction Status Date / Time No Known Allergies Allergy Unverified 06/22/21 08:32 Consultations 07/05/21 21:19 ED Decision to Admit Stat 07/06/21 00:50 Consult Cardiology Routine Ordered Studies 07/05/21 23:08 CT angio chest PE protocol Urgent Hospital Course (1) Fever: Likely related predominantly to secondary bacterial overgrowth pneumoniamay also be a little bit of residual fever from Covid. Stable for homesee under pneumonia belowoutlined that she may have fevers for the next couple of days simply as pneumonia improves. (2) Pneumonia due to 2019 novel coronavirus: Initially Covid positive on 06/18 per testingCT scan, clinical symptoms, overall course seems most consistent that she was initially ill with Covid, and the last few days of her worsening and return of fevers is likely due to a secondary bacterial overgrowth. She was treated with azithromycin and failedlikely because she either is carrying a strep that is resistant to azithromycin, or possibly something gram-negative like Haemophilus. Appears to have responded nicely to ceftriaxonestable/safe for home on cefdinir. Outpatient follow-up. (3) Rheumatic heart disease: Rheumatic heart disease/mitral stenosis/mitral regurgitation/aortic regurg itation/aortic stenosis/status post AVR- Agree with cardiology low suspicion for endocarditis. Blood cultures have been sent (unfortunately after antibiotics were started)but are not showing anything worrisome. Echocardiogram without vegetations. Valve does appear worse on current echoalthough given that she has no decompensated heart failure symptoms, this can be followed as an outpatient. INR slightly low, additional Coumadin given. She is able to check at home with fingerstick and follows closely with the Coumadin clinicadvised to check tomorrow, and then follow closely with Coumadin clinic, particularly given that her INR has been a bit "up and down" recently and she will be on antibiotics. (4) correction (current) use of anticoagulants: See above (5) H/O heart valve replacement with mechanical valve: See above (6) Mitral stenosis: See above (7) Mitral regurgitation: See above (8) Homocysteinemia: Continue folic acid (9) Pulmonary embolism: See above (10) Aortic regurgitation: See above (11) Aortic stenosis: See above Total Time Total Time Spent Total Time Spent (In Minutes): Greater than 30 Discharge Plan Discharge Items Patient Disposition: Home - Self-Care Reason For Visit: FUO, HX OF COVID-19, PNEUMONIA Discharge Diagnosis: pneumonia Activity: Resume your previous activity Non-emergency contact: Primary Care Provider Call non-emergency contact if: you have any medication questions, your symptoms worsen and you have a fever Follow-up/Referrals: Rakesh Chow MD [Primary Care Provider] - Diet: Regular Addtl Attending Provider Instructions: Pneumonia -While the COVID-19 viral infection was initially what made you sick, there is a lot about your current clinical presentation that fits with what we would call a secondary bacterial overgrowth. What this means is where your lungs still have resolving inflammation from the Covid infection are compromised, bacteria have an easier ability to overgrow. -The most common bacteria to cause a pneumonia is strep, and most strep is killed by Zithromaxbut this is not universally the case, and when we have someone who is temporarily more compromised (such as recovering from Covid) it is also really easy for some other different types of bacteria to overgrow -Statistically speaking/by experience with pneumonias, a large majority of the time when somebody does not get better on something like Zithromax, the cephalosporin antibiotics (Rocephin that you are on IV, and cefdinir that we will send you home on as a pill) usually work nicely. They kill the bacteria by a totally different mechanism, and therefore is not very likely to have resistance to both. -We will treat for another week with the cefdinir (300 mg twice a day) with your next dose at home being tomorrow morning. --- Red flags: -It is relatively common, even when using antibiotics that are working, for someone to have a fever even as much as 48 hours into treatment. With that in mind, for the next few days I would not worry too much about what your temperature is, but if you have a temperature above about 100.1 from [place] onward, I would want you seen. As we discussed, there are many nonworrisome things that could cause a fever at that point, but it would be a reasonable "line in the sand" to be checked out -If you feel worse with more shortness of breath, more chest tightness, etc.then with any true clear worsening I would want you seen right away -As we discussed, about 80% of people with a pneumonia will start to have a worse cough when the antibiotics in their immune system start to break up the pus/kill the bacteria. To that end, it would not be surprising if your cough worsens, and mucus gets more dark/green/yellowas long as you are otherwise feeling better, that would be frustrating/annoying, but not surprising. If you are tesfaye, about 20% of people have their white blood cells "gobble up" the bacteria, take it to their liver, and then their liver dumps the waste products out into intestines. -Likewise as we discussed, unfortunately it may take until early August for you to slowly feel back to "good as new"even after the fevers are gone, and the cough has cleared, it will likely be that you have an easy fatigability/everything feels "uphill"if that is happening, do not look for day to day improvement (often the pace of getting better is just too slow to notice a change from yesterday to today)rather look back 3 to [address] her progress that way. -We would want you to be seen at Dr. Carter's office within the next week, sooner if you are feeling worse. Valve/INR -Your INR was 1.7 this morning, we gave a little bit of additional Coumadin, and antibiotics will commonly increase your INR. To that end, while you are on the antibiotics, you will definitely want to watch her INR closely and have tight follow-up with the anticoagulation clinic. I would recommend you check an INR tomorrow, call the clinic, and follow their guidance from there Blood cultures have been sent and are in the microbiology labthey run them for about 5 days. I do not expect any findings on the blood cultures, but if there are we will call you. Similarly at the time I am doing your discharge paperwork, the input from cardiology/the cardiology reading of your echocard iogram are still pending Pending Studies at Discharge: Yes (blood cultures, echo at the time of this writing) Stand-Alone Forms: My [facility], Smoking Cessation Medications and DC Order Prescriptions: New cefdinir 300 mg capsule 300 mg PO BID Qty: 14 RF: 0 Continued folic acid 1 mg tablet 1 mg PO DAILY Qty: 90 RF: 3 warfarin 5 mg tablet 5 mg PO DAILY Qty: 90 RF: 3 cholecalciferol (vitamin D3) 2,000 unit tablet 2,000 units PO DAILY RF: 0 latanoprost 0.005 % drops 1 drops OP DAILY RF: 0 cyanocobalamin (vitamin B-12) 1,000 mcg tablet extended release 1,000 mcg PO DAILY RF: 0 alendronate 70 mg tablet 70 mg PO WK RF: 0 zinc acetate 25 mg (zinc) Capsule 0 mg PO DAILY RF: 0 calcium carbonate [Calcium 500] 500 mg calcium (1,250 mg) Tablet 0 mg PO DAILY RF: 0 ascorbic acid (vitamin C) [Vitamin C] 500 mg Tablet 0 mg PO DAILY RF: 0 aspirin 81 mg Capsule 81 mg PO DAILY RF: 0 Discharge Orders: Discharge Order (Routine); Ordered 07/06/21 Ordered By: Delio Mcgrath Admission Data Admit Date/Time: 07/05/21 23:11 Attending Provider: Delio Mcgrath Admit Provider: Toi Marcus Primary Care Provider: Rakesh Chow V. 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
--- NOTE | 2021-07-07 07:05 | Electrocardiogram Report ---
Test Reason : Blood Pressure : / mmHG Vent. Rate : 099 BPM Atrial Rate : 099 BPM P-R Int : 132 ms QRS Dur : 118 ms QT Int : 384 ms P-R-T Axes : 074 086 064 degrees QTc Int : 492 ms Poor data quality, interpretation may be adversely affected Normal sinus rhythm Right bundle branch block Abnormal ECG When compared with ECG of 05-NOV-2012 20:38, Right bundle branch block is now Present Confirmed by Terrence lElis ([id number]) on 07/07/2021 7:05:16 AM Referred By: REFERRED SELF Confirmed By:Terrence Ellis
== END 2021-07-06 19:19 | disposition home or self-care (01) ==
LOC: ED 16:56 → SUATTDRO 23:11 → EDINP 23:11 → ED 07-06 00:51 → EDINP 07-06 00:51 → INTOOBSV 07-06 19:17 → EDINP 07-18 12:08